=== PATIENT | female | born 1965 | race Caucasian/White ===

== ENCOUNTER 2024-01-20 08:16 | Emergency (ER) | payer BC ==
[~2024-01-20] VITALS: Ht 162.5 cm; Wt 63.5 kg
[2024-01-20] MEDS ORDERED: Ketorolac Tromethamine 15 MG/ML VIAL IV ONE (08:30)
[2024-01-20] MEDS ORDERED: SODIUM CHLORIDE 0.9% 1,000 ML IV ONE (08:30)
[2024-01-20] MEDS ORDERED: Cyclobenzaprine Hydrochlorid 10 MG TAB PO ONE (08:30)
[2024-01-20 08:56] LABS: BASO % 0.2 % (0.0-1.0); HEMATOCRIT 38.3 % (37.0-47.0); LYMPH # 2.9 10*3/uL (1.3-4.4); LYMPH % 21.5 % (27.0-41.0); MEAN CELL VOLUME 90.5 fl (81.0-99.0); MEAN CORPUSCULAR HGB 30.7 pg (27.0-31.0); MEAN CORPUSCULAR HGB CONC 33.9 g/dl (33.0-37.0); MEAN PLATELET VOLUME 10.9 fl (9.6-12.3); MONO # 0.9 10*3/uL (0.1-1.0); MONO % 6.4 % (3.0-9.0); NEUT # 9.8 10*3/uL (2.3-7.9); NEUT % 71.7 % (47.0-73.0); PLATELET COUNT AUTOMATED 228 10*3/uL (130-400); RED BLOOD COUNT 4.23 10*6/uL (4.10-5.10); RED CELL DISTRI WIDTH 12.9 % (0-14.5); WHITE BLOOD COUNT 13.6 10*3/uL (4.8-10.8)
[2024-01-20 09:25] LABS: BUN 11 mg/dl (9-23); CHLORIDE 108 mmol/L (98-107); POTASSIUM 4.1 mmol/L (3.4-5.1)
[2024-01-20] MEDS ORDERED: MELOXICAM15 MG PO (09:40)
[2024-01-20] MEDS ORDERED: CYCLOBENZAPRINE10 MG PO (09:40)
== END 2024-01-20 09:43 | disposition home or self-care (01) ==
LOC: ED 08:16
PROVIDERS: Emergency Medicine
DX: R07.89 Other chest pain (principal); M54.9 Dorsalgia, unspecified; Z88.8 Allergy status to other drugs, medicaments and biological substances